=== PATIENT | male | born 1965 | race Caucasian/White ===

== ENCOUNTER 2021-04-11 11:16 | Emergency (ER) | payer MEDICAID ==
[~2021-04-11] VITALS: Ht 185.4 cm; Wt 75.0 kg
[~2021-04-11 11:16] MED LIST: ARIP10TA15 PO; REM15T PO; ZIPR20CA2 PO
[2021-04-11 11:23] VITALS: BP 113/76
== END 2021-04-11 12:25 ==
LOC: ER 11:17 → EEVIPCON 11:17 → ER 12:25
DX: R22.2 Localized swelling, mass and lump, trunk (principal); F15.90 Other stimulant use, unspecified, uncomplicated; Z86.19 Personal history of other infectious and parasitic diseases; Z79.899 Other long term (current) drug therapy
CPT/HCPCS: 71045; 99283

== ENCOUNTER 2022-02-25 08:42 | Emergency (ER) | payer MEDICAID ==
[~2022-02-25] VITALS: Ht 185.4 cm; Wt 97.3 kg
[2022-02-25] MEDS ORDERED: ALBUTEROL INHALER 1 PUFF/90 MCG INHALER IH PRN (10:00)
[2022-02-25] MEDS ORDERED: albuterol 2.5 MG/3 ML nebule NEB PRN (10:09)
[2022-02-25] MEDS ORDERED: ALBU18HF2 INH (10:33)
[2022-02-25] MEDS ORDERED: PRED20TA PO (10:55)
[2022-02-25 11:11] VITALS: BP 122/81
== END 2022-02-25 11:13 | disposition home or self-care (01) ==
LOC: ER 08:43
DX: J22 Unspecified acute lower respiratory infection (principal); Z20.822 Contact with and (suspected) exposure to COVID-19; J44.9 Chronic obstructive pulmonary disease, unspecified; F15.10 Other stimulant abuse, uncomplicated
CPT/HCPCS: 87635; 94640; 99285; C9803; 94760

== ENCOUNTER 2024-03-12 15:49 | Outpatient (CLI) | payer MEDICAID ==
[~2024-03-12 15:49] MED LIST changes: +ALBU18HF2 INH
== END 2024-03-12 23:59 | disposition home or self-care (01) ==
LOC: RAD 15:49
PROVIDERS: ATTEND General Practice
DX: R07.89 Other chest pain (principal)
CPT/HCPCS: 71046

== ENCOUNTER 2024-08-03 10:19 | Emergency (ER) | payer MEDICAID ==
[~2024-08-03] VITALS: Ht 185.4 cm; Wt 105.0 kg
[2024-08-03 10:39] LABS: BASOPHILS # (AUTO) 0.1 X10'3 (0-0.2); BASOPHILS % (AUTO) 0.7 % (0-1); EOSINOPHILS # (AUTO) 0.1 X10'3 (0-0.9); EOSINOPHILS % (AUTO) 1.7 % (0-6); HEMATOCRIT 44.7 % (42.0-52.0); HEMOGLOBIN 15.3 g/dl (14.0-17.9); LYMPHOCYTES % (AUTO) 28.1 % (21-51); MEAN CORPUSCULAR HEMOGLOBIN 30.4 PG (27.0-31.0); MEAN CORPUSCULAR HGB CONC 34.2 g/dL (33.0-36.5); MEAN CORPUSCULAR VOLUME 88.8 FL (78-98); MEAN PLATELET VOLUME 8.1 FL (7.4-10.4); MONOCYTES # (AUTO) 0.7 X10'3 (0-0.9); MONOCYTES % (AUTO) 9.3 % (2-12); NEUTROPHILS # (AUTO) 4.4 X10'3 (1.8-7.7); NEUTROPHILS % (AUTO) 60.2 % (42-75); PLATELET COUNT 289 X10'3 (140-440); RED BLOOD COUNT 5.04 X10'6 (4.70-6.10); RED CELL DISTRIBUTION WIDTH 13.8 % (11.5-14.5); WHITE BLOOD COUNT 7.2 X10'3 (4.5-11.0)
[2024-08-03 10:56] LABS: ALANINE AMINOTRANSFERASE 24 U/L (12-78); ALBUMIN/GLOBULIN RATIO 0.8 (1.1-1.5); ALKALINE PHOSPHATASE 88 IU/L (46-116); ANION GAP 9 (8-16); ASPARTATE AMINO TRANSFERASE 22 U/L (10-37); BILIRUBIN,TOTAL 0.8 MG/DL (0.1-1.0); BLOOD UREA NITROGEN 21 MG/DL (7-18); BUN/CREATININE RATIO 18.3 (10.0-20.0); CALCIUM 9.2 MG/DL (8.5-10.1); CHLORIDE 102 MMOL/L (99-107); CREATININE 1.15 MG/DL (0.60-1.10); GLUCOSE 113 MG/DL (70-104); POTASSIUM 4.6 MMOL/L (3.5-5.1); SODIUM 138 MMOL/L (135-145); TOTAL CARBON DIOXIDE 26.8 MMOL/L (24-32); TOTAL PROTEIN 8.9 G/DL (6.4-8.2); eCRCL 76 ML/MIN; eGFR 65 ML/MIN
[2024-08-03] MEDS ORDERED: OMEP20CA16 PO (10:58)
[2024-08-03] MEDS ORDERED: METF-517 PO (10:58)
[2024-08-03 11:03] LABS: PRO BRAIN NATRIURETIC PEPTIDE 62 PG/ML (0-125)
[2024-08-03] MEDS: aspirin 325mg tablet PO ONE (11:54)
[2024-08-03 12:04] VITALS: BP 115/87; PULSE 98; RESP 16; TEMP 98.4; O2SAT 98
[2024-08-03 12:07] LABS: D-DIMER 0.37 MG/L FEU (0-0.50)
== END 2024-08-03 12:05 | disposition home or self-care (01) ==
LOC: ER 10:19
DX: R07.89 Other chest pain (principal); J44.9 Chronic obstructive pulmonary disease, unspecified; E11.9 Type 2 diabetes mellitus without complications; F15.90 Other stimulant use, unspecified, uncomplicated; Z72.0 Tobacco use; Z79.899 Other long term (current) drug therapy; Z79.84 Long term (current) use of oral hypoglycemic drugs; Z90.49 Acquired absence of other specified parts of digestive tract
CPT/HCPCS: 36415; 71045; 80053; 83880; 84484; 85025; 85379; 93005; 99285

== ENCOUNTER 2024-09-07 12:19 | Emergency (ER) | payer MEDICAID ==
[~2024-09-07] VITALS: Ht 185.4 cm; Wt 108.0 kg
[~2024-09-07 12:19] MED LIST changes: -ARIP10TA15 PO; +METF-517 PO; +OMEP20CA16 PO; -REM15T PO; -ZIPR20CA2 PO
[2024-09-07] MEDS ORDERED: POLY17PO10 PO (16:54)
[2024-09-07] MEDS ORDERED: MAGN296S68 PO (16:54)
[2024-09-07 17:20] VITALS: BP 148/87; PULSE 78; RESP 16; TEMP 98.1; O2SAT 97
== END 2024-09-07 17:22 | disposition home or self-care (01) ==
LOC: ER 12:19
DX: K59.00 Constipation, unspecified (principal); J44.9 Chronic obstructive pulmonary disease, unspecified; E11.9 Type 2 diabetes mellitus without complications; F15.90 Other stimulant use, unspecified, uncomplicated; Z79.899 Other long term (current) drug therapy; Z90.49 Acquired absence of other specified parts of digestive tract
CPT/HCPCS: 74019; 99283

== ENCOUNTER 2025-09-13 10:11 | Emergency (ER) | payer MEDICAID ==
[~2025-09-13] VITALS: Ht 185.4 cm; Wt 113.2 kg
[~2025-09-13 10:11] MED LIST changes: +MAGN296S68 PO
[2025-09-13 11:27] LABS: INFLUENZA TYPE A ANTIGEN RAPID NEGATIVE (Negative); INFLUENZA TYPE B ANTIGEN RAPID NEGATIVE (Negative)
[2025-09-13] MEDS ORDERED: ACET-1025 PO (12:37)
[2025-09-13] MEDS ORDERED: IBUP-1986 PO (12:37)
--- NOTE | 2025-09-13 12:37 | Physician Documentation ---
History of Present Illness ~ Chief Complaint: Flu Symptoms Stated Complaint: COLD SYMPTOMS Time Seen by MD: 11:17 Primary Medical Doctor: NONE HPI Patient is seen today with complaints of cough and cold-like symptoms and some body aches for the last four days since last . Patient states he has no chest pain and denies any shortness of breath or abdominal pain or nausea, vomiting, diarrhea. Patient has no other concern or complaint at this time Medication Reconciliation Allergies: Coded Allergies: No Known Drug Allergies (Verified Allergy, Unknown, 09/13/25) Scheduled Albuterol Sulfate (Ventolin Hfa), 2 PUFFS INH Q4HPRN Magnesium Citrate (MAGNESIUM CITRATE oral solution), 296 ML PO ONCE Metformin HCl (Metformin HCl ER), 1 TAB PO DAILY, (Reported) Omeprazole (Omeprazole), 1 CAP PO DAILY, (Reported) Past Medical History Past Medical History: COPD, Hepatitis C, Peptic Ulcer Disease, Diabetes, *INFECTIOUS DZ* Past Surgical History: appendectomy Alcohol Use: None Drug Use: methamphetamine Lives In: Other Review of Systems Constitutional: Denies: chills, fever, weakness Eyes: Denies: pain, blurred vision ENT: Denies: ear pain, nose pain, throat pain, mouth pain Respiratory: Denies: cough, shortness of breath Cardiovascular: Denies: chest pain, palpitations Gastrointestinal: Denies: abdominal pain, nausea, vomiting Genitourinary: Denies: burning, dysuria Male Genitalia: Denies: penile discharge, testicular pain Neurological: Denies: headache, dizziness Musculoskeletal: Denies: pain, swelling Integumentary: Denies: rash, lesions Allergic/Immunologic: Denies: hives, itching Hematologic/Lymphatic: Denies: no symptoms reported Psychiatric: Denies: depression, anxiety Physical Exam Vital Signs: Temperature: 97.1, Source: Oral, Heart Rate: 87, Respiratory Rate: 16, BP: 136/93, Pulse Oximetry: 95, Weight: 113.200 Oxygen Flow Rate: 0 Physical Exam General: Awake and Alert, no acute distress. HEENT: Conjunctiva pink, Sclera clear, Mucus Membranes moist. Neck: Supple without masses and tenderness. Resp: Unlabored. Lungs clear to auscultation bilaterally. Heart: Regular Rate and rhythm, normal S1 and S2 without murmur, rub or gallop. Abdomen: Soft and non tender no organomegaly Extremities: No cyanosis,clubbing or edema. Skin: Warm and Dry. Progress Results/Orders Results/Orders Orders - GERALD BARRERA Covid19 Binax Poc Result Entry (09/13/25 10:27) Vital Signs 09/13/25 10:16 Temp 97.1 Pulse 87 Resp 16 B/P (MAP) 136/93 Pulse Ox 95 O2 Flow Rate 0 Laboratory Tests Test 09/13/25 10:25 09/13/25 11:05 SARS-CoV-2 Antigen (Rapid) Positive *A Influenza Type A Antigen Negative Influenza Type B Antigen Negative Medical Decision Making Additional information obtaine: N/A Findings Patient is seen today with complaints of cough and cold-like symptoms and some body aches for the last four days since last . Patient states he has no chest pain and denies any shortness of breath or abdominal pain or nausea, vomiting, diarrhea. Patient has no other concern or complaint at this time Patient was given prescription for Tylenol and ibuprofen to be taken as needed for symptomatic relief patient will increase rest and fluids. Patient did test positive for COVID-19 today. Patient will return to ED with any worsening, concerning or changing symptoms. Differential Dx:Considerations: Include: Influenza, Pneumonia, Respiratory failure, Viral Syndrome Departure Disposition: HOME / SELF CARE / HOMELESS Impression: Primary Impression: Viral infection Additional Impression: COVID Condition: Stable Discharge Instructions: Viral Illness Additional Instructions: Patient was given prescription for Tylenol and ibuprofen to be taken as needed for symptomatic relief patient will increase rest and fluids. Patient did test positive for COVID-19 today. Patient will return to ED with any worsening, concerning or changing symptoms. Referrals: NO PRIMARY CARE PROVIDER (PCP) Prescriptions Acetaminophen (Tylenol Extra Strength) 500 Mg Tablet 2 TAB PO Q6H PRN PRN for pain or fever for 7 Days, #56 TAB Prov: GERALD BARRERA 09/13/25 Ibuprofen (Ibuprofen) 800 Mg Tablet 1 TAB PO Q8H for pain for 10 Days, #30 TAB 0 Refills Prov: GERALD BARRERA 09/13/25 Signature Scribe Signature: No scribe Attestation: No scribe GERALD BARRERA Sep 13, 2025 12:37
[2025-09-13 12:41] VITALS: BP 134/78; PULSE 88; RESP 16; TEMP 98.4; O2SAT 99
== END 2025-09-13 12:44 | disposition home or self-care (01) ==
LOC: ER 10:11
DX: U07.1 COVID-19 (principal); E11.9 Type 2 diabetes mellitus without complications; J44.9 Chronic obstructive pulmonary disease, unspecified; F15.90 Other stimulant use, unspecified, uncomplicated; Z20.822 Contact with and (suspected) exposure to COVID-19; Z90.49 Acquired absence of other specified parts of digestive tract
CPT/HCPCS: 36415; 87804; 87811; 99283